=== PATIENT | male | born 1950 | race Caucasian/White ===

== ENCOUNTER 2018-06-22 09:54 | Emergency (ER) | payer MEDICAID ==
[2018-06-22] MEDS: KETOROLAC 30 MG INJ IM (10:55)
[2018-06-22 11:06] LABS: URINE PH (Dip) POC 6.5 (5.0-8.5)
[2018-06-22 11:06] LABS: URINE BLOOD (Dip) POC 1+ (NEGATIVE); URINE GLUCOSE (Dip) POC Negative (NEGATIVE); URINE KETONES (Dip) POC Negative (NEGATIVE); URINE LEUKOCYTE EST (Dip) POC Negative (NEGATIVE); URINE NITRITE (Dip) POC Negative (NEGATIVE); URINE TOTAL PROTEIN POC Negative (NEGATIVE)
== END 2018-06-22 11:33 | disposition home or self-care (01) ==
LOC: FTE 09:54
DX: S29.012A Strain of muscle and tendon of back wall of thorax, initial encounter (principal); F17.210 Nicotine dependence, cigarettes, uncomplicated; V89.0XXA Person injured in unspecified motor-vehicle accident, nontraffic, initial encounter
CPT/HCPCS: 72100; 81003; 96372; 99284-25

== ENCOUNTER 2018-09-26 11:24 | Inpatient (IN) | payer MEDICAID ==
[2018-09-26 11:41] LABS: ADD MAN DIFF? NO
[2018-09-26] MEDS: ASPIRIN 325 MG TAB PO ×2 (11:42→11:43)
[2018-09-26] MEDS ORDERED: NITROGLYCERIN (IC) 100 MCG/ML INJ (11:44)
[2018-09-26] MEDS ORDERED: IODIXANOL LOCM 100 ML BTL (11:44)
[2018-09-26] MEDS ORDERED: VERAPAMIL 5 MG INJ (11:44)
[2018-09-26] MEDS ORDERED: LIDOCAINE 1% (MDV) 20 ML INJ (11:44)
[2018-09-26] MEDS ORDERED: HEPARIN 1000 UNITS/ML 10 ML INJ (11:44)
[2018-09-26 11:46] LABS: BASOPHIL # 0.1 10^3/ul (0.0-0.1); BASOPHILS % 0.8 % (0.0-2.0); EOSINOPHILS # 0.3 10^3/ul (0.0-0.5); EOSINOPHILS % 2.4 % (0.0-7.0); HEMATOCRIT 39.1 % (42.0-52.0); HEMOGLOBIN 12.8 g/dl (14.0-18.0); LYMPHOCYTES % 29.1 % (15.0-51.0); MEAN CORPUSCULAR HEMOGLOBIN 28.7 pg (29.0-33.0); MEAN CORPUSCULAR HGB CONC 32.7 g/dl (32.0-37.0); MEAN CORPUSCULAR VOLUME 87.7 fl (82.0-101.0); MEAN PLATELET VOLUME 10.2 fl (7.4-10.4); MONOCYTE # 0.5 10^3/ul (0.3-0.9); MONOCYTES % 4.9 % (0.0-11.0); NEUTROPHIL # 6.5 10^3/ul (1.6-7.5); NEUTROPHILS % 62.5 % (39.0-77.0); PLATELET COUNT 177 10^3/UL (140-415); RED BLOOD COUNT 4.46 10^6/ul (4.70-6.10); RED CELL DISTRIBUTION WIDTH 14.7 % (11.5-14.5)
[2018-09-26 11:46] LABS: WHITE BLOOD COUNT 10.3 10^3/ul (4.8-10.8)
[2018-09-26] MEDS: HYDROmorphONE 2 MG/ML SYG IV (11:57)
[2018-09-26] MEDS: ONDANSETRON 4 MG INJ IV (11:57)
[2018-09-26] MEDS ORDERED: HYDROmorphONE 2 MG/ML SYG (11:58)
[2018-09-26] MEDS ORDERED: ONDANSETRON 4 MG INJ (11:58)
[2018-09-26 12:03] LABS: ALANINE AMINOTRANSFERASE 20 IU/L (13-69); ALBUMIN 4.2 g/dl (3.3-4.9); ALBUMIN/GLOBULIN RATIO 1.31; ALKALINE PHOSPHATASE 67 IU/L (42-121); ANION GAP 10 (5-13); ASPARTATE AMINO TRANSFERASE 22 IU/L (15-46); BILIRUBIN,INDIRECT 0.2 mg/dl (0-1.1); BILIRUBIN,TOTAL 0.2 mg/dl (0.2-1.3); BLOOD UREA NITROGEN 14 mg/dl (7-20); CALCIUM 9.8 mg/dl (8.4-10.2); CARBON DIOXIDE 22 mmol/L (21-31); CHLORIDE 110 mmol/L (97-110); CREATINE KINASE 98 IU/L (23-200); Estimated GFR > 60 mL/min (>60); GLUCOSE 141 mg/dl (70-220); SODIUM 142 mmol/L (135-144); TOTAL PROTEIN 7.4 g/dl (6.1-8.1)
[2018-09-26 12:04] LABS: CREATININE 0.55 mg/dl (0.61-1.24)
[2018-09-26 12:08] LABS: INR 0.93; PROTIME 12.6 Sec (11.9-14.9)
[2018-09-26 12:09] LABS: PARTIAL THROMBOPLASTIN TIME 29.2 Sec (23.0-35.0)
[2018-09-26 12:12] LABS: B-TYPE NATRIURETIC PEPTIDE 63 PG/ML (0-125)
[2018-09-26 12:16] LABS: TROPONIN-I < 0.012 ng/ml (0.000-0.120)
[2018-09-26] MEDS ORDERED: PROPOFOL 0 ML (12:32)
[2018-09-26] MEDS ORDERED: MIDAZOLAM 1 MG/ML 2 ML INJ (12:33)
[2018-09-26] MEDS ORDERED: EPTIFIBATIDE 20 ML (12:55)
[2018-09-26] MEDS ORDERED: EPTIFIBATIDE 100 ML IV (12:55)
[2018-09-26] MEDS ORDERED: TICAGRELOR 90 MG TABLET (13:20)
[2018-09-26] MEDS: EPTIFIBATIDE 100 ML IV ×2 (13:36→19:00)
[2018-09-26] MEDS ORDERED: ACETAMINOPHEN 325 MG TAB PO ×2 (14:00→15:30)
[2018-09-26] MEDS ORDERED: OXYCODONE/ACETAMINOPHEN (5/325) TAB PO ×2 (14:00)
[2018-09-26] MEDS ORDERED: ZOLPIDEM 5 MG TAB PO (14:00)
[2018-09-26] MEDS ORDERED: morphine 2 MG INJ IV (14:00)
[2018-09-26] MEDS: SOD CHLORIDE 0.9% 1,000 ML IV (14:32)
[2018-09-26 15:21] LABS: ADD MAN DIFF? NO
[2018-09-26 15:26] LABS: BASOPHIL # 0.1 10^3/ul (0.0-0.1); BASOPHILS % 0.4 % (0.0-2.0); EOSINOPHILS % 0.1 % (0.0-7.0); HEMATOCRIT 40.1 % (42.0-52.0); HEMOGLOBIN 12.7 g/dl (14.0-18.0); LYMPHOCYTES # 1.7 10^3/ul (0.8-2.9); MEAN CORPUSCULAR HEMOGLOBIN 28.4 pg (29.0-33.0); MEAN CORPUSCULAR HGB CONC 31.7 g/dl (32.0-37.0); MEAN CORPUSCULAR VOLUME 89.7 fl (82.0-101.0); MEAN PLATELET VOLUME 10.7 fl (7.4-10.4); MONOCYTE # 0.4 10^3/ul (0.3-0.9); MONOCYTES % 2.3 % (0.0-11.0); NEUTROPHIL # 12.9 10^3/ul (1.6-7.5); NEUTROPHILS % 85.7 % (39.0-77.0); PLATELET COUNT 193 10^3/UL (140-415); RED BLOOD COUNT 4.47 10^6/ul (4.70-6.10); RED CELL DISTRIBUTION WIDTH 14.8 % (11.5-14.5)
[2018-09-26 15:26] LABS: WHITE BLOOD COUNT 15.1 10^3/ul (4.8-10.8)
[2018-09-26] MEDS ORDERED: NACL 0.9% 3 ML SYG IV (15:30)
[2018-09-26] MEDS: NICOTINE (21 MG/24 HR) PATCH TRANSDERM (16:58)
[2018-09-26] MEDS: ATORVASTATIN 80 MG TAB PO (20:35)
[2018-09-26] MEDS: TICAGRELOR 90 MG TABLET PO (20:38)
[2018-09-26 23:41] LABS: ANION GAP 7 (5-13); BLOOD UREA NITROGEN 10 mg/dl (7-20); CALCIUM 8.9 mg/dl (8.4-10.2); CARBON DIOXIDE 24 mmol/L (21-31); CHLORIDE 105 mmol/L (97-110); CREATININE 0.46 mg/dl (0.61-1.24); Estimated GFR > 60 mL/min (>60); GLUCOSE 138 mg/dl (70-220); MAGNESIUM 1.8 mg/dl (1.7-2.5); SODIUM 136 mmol/L (135-144)
[2018-09-27] MEDS: MAGNESIUM SULFATE 2 GM/50 ML 50 ML IVPB (00:12)
[2018-09-27 05:14] LABS: ADD MAN DIFF? NO
[2018-09-27 05:17] LABS: WHITE BLOOD COUNT 13.9 10^3/ul (4.8-10.8)
[2018-09-27 05:17] LABS: BASOPHILS % 0.2 % (0.0-2.0); EOSINOPHILS % 0.1 % (0.0-7.0); HEMATOCRIT 35.6 % (42.0-52.0); HEMOGLOBIN 11.7 g/dl (14.0-18.0); LYMPHOCYTES # 1.9 10^3/ul (0.8-2.9); LYMPHOCYTES % 13.4 % (15.0-51.0); MEAN CORPUSCULAR HEMOGLOBIN 28.2 pg (29.0-33.0); MEAN CORPUSCULAR HGB CONC 32.9 g/dl (32.0-37.0); MEAN CORPUSCULAR VOLUME 85.8 fl (82.0-101.0); MEAN PLATELET VOLUME 10.6 fl (7.4-10.4); MONOCYTE # 0.8 10^3/ul (0.3-0.9); MONOCYTES % 5.9 % (0.0-11.0); NEUTROPHIL # 11.1 10^3/ul (1.6-7.5); NEUTROPHILS % 79.9 % (39.0-77.0); PLATELET COUNT 167 10^3/UL (140-415); RED BLOOD COUNT 4.15 10^6/ul (4.70-6.10); RED CELL DISTRIBUTION WIDTH 14.9 % (11.5-14.5)
[2018-09-27 05:30] LABS: HEMOGLOBIN A1C 5.6 % (0-5.9)
[2018-09-27] MEDS: PANTOPRAZOLE (EC) 40 MG TAB PO (05:43)
[2018-09-27 05:49] LABS: ALANINE AMINOTRANSFERASE 56 IU/L (13-69); ALBUMIN 3.6 g/dl (3.3-4.9); ALBUMIN/GLOBULIN RATIO 1.33; ALKALINE PHOSPHATASE 61 IU/L (42-121); ANION GAP 9 (5-13); ASPARTATE AMINO TRANSFERASE 187 IU/L (15-46); BILIRUBIN,INDIRECT 0.8 mg/dl (0-1.1); BILIRUBIN,TOTAL 0.8 mg/dl (0.2-1.3); BLOOD UREA NITROGEN 9 mg/dl (7-20); CALCIUM 8.8 mg/dl (8.4-10.2); CARBON DIOXIDE 23 mmol/L (21-31); CHLORIDE 105 mmol/L (97-110); CREATININE 0.49 mg/dl (0.61-1.24); Estimated GFR > 60 mL/min (>60); GLUCOSE 133 mg/dl (70-220); MAGNESIUM 2.3 mg/dl (1.7-2.5); POTASSIUM 3.9 mmol/L (3.5-5.1); SODIUM 137 mmol/L (135-144); TOTAL PROTEIN 6.3 g/dl (6.1-8.1)
[2018-09-27 06:41] LABS: CHOLESTEROL 193 mg/dl (100-200)
[2018-09-27 06:41] LABS: HDL CHOLESTEROL 38 mg/dl (30-78); LDL CHOLESTEROL,CALCULATED 141 mg/dl; TRIGLYCERIDES 71 mg/dl (0-149)
[2018-09-27] MEDS: ONDANSETRON 4 MG INJ IV (07:57)
[2018-09-27] MEDS: ASPIRIN (EC) 81 MG TAB PO (09:08)
[2018-09-27] MEDS: NICOTINE (21 MG/24 HR) PATCH TRANSDERM (09:09)
[2018-09-27] MEDS: CLOPIDOGREL 75 MG TAB PO (12:31)
[2018-09-27 13:58] LABS: ADD MAN DIFF? NO
[2018-09-27 14:00] LABS: WHITE BLOOD COUNT 15.8 10^3/ul (4.8-10.8)
[2018-09-27 14:00] LABS: BASOPHILS % 0.3 % (0.0-2.0); EOSINOPHILS # 0.1 10^3/ul (0.0-0.5); EOSINOPHILS % 0.4 % (0.0-7.0); HEMATOCRIT 36.8 % (42.0-52.0); LYMPHOCYTES # 2.2 10^3/ul (0.8-2.9); LYMPHOCYTES % 13.8 % (15.0-51.0); MEAN CORPUSCULAR HEMOGLOBIN 28.4 pg (29.0-33.0); MEAN CORPUSCULAR HGB CONC 32.6 g/dl (32.0-37.0); MEAN PLATELET VOLUME 10.8 fl (7.4-10.4); MONOCYTE # 1.2 10^3/ul (0.3-0.9); MONOCYTES % 7.9 % (0.0-11.0); NEUTROPHIL # 12.2 10^3/ul (1.6-7.5); NEUTROPHILS % 77.1 % (39.0-77.0); PLATELET COUNT 180 10^3/UL (140-415); RED BLOOD COUNT 4.23 10^6/ul (4.70-6.10); RED CELL DISTRIBUTION WIDTH 14.8 % (11.5-14.5)
[2018-09-28] MEDS ORDERED: CLOPIDOGREL 75 MG TAB PO (09:00)
== END 2018-09-27 15:02 | disposition home or self-care (01) | DRG 247 ==
LOC: E/R 11:24 → CCL 11:37 → SDS 11:37 → CCL 12:51 → REC 12:52 → ICU 14:00
PROC: 027034Z Dilation of Coronary Artery, One Artery with Drug-eluting Intraluminal Device, Percutaneous Approach (ICD-10-PCS; principal; 2018-09-26 11:00)
PROC: 02C03ZZ Extirpation of Matter from Coronary Artery, One Artery, Percutaneous Approach (ICD-10-PCS; 2018-09-26 11:00)
PROC: 4A023N7 Measurement of Cardiac Sampling and Pressure, Left Heart, Percutaneous Approach (ICD-10-PCS; 2018-09-26 11:00)
PROC: B211YZZ Fluoroscopy of Multiple Coronary Arteries using Other Contrast (ICD-10-PCS; 2018-09-26 11:00)
DX: I21.19 ST elevation (STEMI) myocardial infarction involving other coronary artery of inferior wall (principal); I25.10 Atherosclerotic heart disease of native coronary artery without angina pectoris; F17.200 Nicotine dependence, unspecified, uncomplicated; I21.11 ST elevation (STEMI) myocardial infarction involving right coronary artery
CPT/HCPCS: 71045; 80048; 80053; 80061; 82550; 82553; 83036; 83735; 83880; 84100; 84443; 84484; 85025; 85610; 85730; 87081; 93005; 93306; 93454; 99285-25